=== PATIENT | male | born 1985 | race African-American/Black ===

== ENCOUNTER 2017-06-19 12:06 | Emergency (ER) | payer SELFPAY ==
[~2017-06-19] VITALS: Ht 185.4 cm; Wt 127.0 kg
[2017-06-19] MEDS ORDERED: ONDANSETRON PF 4 MG/2 ML VIAL. IV ONE (12:30)
[2017-06-19] MEDS ORDERED: fentaNYL PF VIAL 100 MCG/2 ML VIAL IV PRN (12:30)
--- NOTE | 2017-06-19 12:44 | ED.ADGEN ---
Past Medical History Past Medical History: No Pertinent History Past Surgical History: Other Additional Past Surgical Histo: pins right 5th finger Alcohol Use: Heavy Drug Use: Marijuana Adult General Chief Complaint Chief Complaint: NAUSEA/VOMITING/DIARRHA HPI HPI Patient is a 31 year old man, no significant past no history, who presents to the emergency department with a complaint of hematemesis. Patient states that he has been drinking heavily for the past 3 days, states he's had "6 or 7 bottles of vodka and Cognac", since Tuesday night. He states his last alcoholic ingestion was around 3:00 in the morning. Patient states that he began to experience upper abdominal pain, and then vomiting, has vomited once, states that he had "a lot of blood", in the emesis, along with some food initially, he describes it as a medium red, states that it was about a cup. Patient states the pain is sharp and stabbing, also cramping, does not radiate, no diarrhea, last bowel was this morning, states he does not believe that there was any blood in the stool but he is not sure. Patient denies any similar to previously , states the last food that he ate was around midnight last night. Denies any injuries, any chest pain or shortness breath, any flank pain, states he is feeling shaky and lightheaded. Denies any drug ingestions, states he does smoke cigarettes daily. Has no history of liver, kidney, or other medical problems, states that he does not drink on a daily basis, usually will drink only on the weekends. Review of Systems Review of Systems Constitutional: Denies fever or chills. [] Eyes: Denies change in visual acuity. [] HENT: Denies nasal congestion or sore throat. [] Respiratory: Denies cough or shortness of breath. [] Cardiovascular: Denies chest pain or edema. [] GI: Cramping upper abdominal pain, nausea, vomiting with blood, no bloody stools or diarrhea. : Denies dysuria. [] Musculoskeletal: Denies back pain or joint pain. [] Integument: Denies rash. [] Neurologic: Denies headache, focal weakness or sensory changes. [] Endocrine: Denies polyuria or polydipsia. [] Lymphatic: Denies swollen glands. [] Psychiatric: Denies depression or anxiety. [] Current Medications Current Medications Current Medications Medications (Trade) Dose Ordered Sig/Josef Start Time Stop Time Status Last Admin Dose Admin Fentanyl Citrate (Fentanyl 2ml Vial) 25 mcg PRN Q15MIN PRN 06/19/17 12:30 06/19/17 17:33 DC 06/19/17 12:45 25 MCG Multivitamins 10 ml/Folic Acid 1 mg/Thiamine HCl 100 mg/Dextrose/ Sodium Chloride 1,011.2 ml @ 1,000 mls/ hr 1X ONCE 06/19/17 13:15 06/19/17 14:15 DC 06/19/17 13:34 1,000 MLS/HR Ondansetron HCl (Zofran) 4 mg 1X ONCE 06/19/17 12:30 06/19/17 12:32 DC 06/19/17 12:45 4 MG Pantoprazole Sodium (Protonix Vial) 80 mg 1X ONCE 06/19/17 12:45 06/19/17 12:46 DC 06/19/17 12:45 80 MG Pantoprazole Sodium 80 mg/ Sodium Chloride 100 ml @ 10 mls/hr Q10H 06/19/17 12:45 06/19/17 17:33 DC 06/19/17 12:51 10 MLS/HR Allergies Allergies Allergies Coded Allergies Type Severity Reaction Last Updated Verified No Known Drug Allergies 09/29/14 No Physical Exam Physical Exam Constitutional: Well developed, well nourished, appears uncomfortable, strong odor of alcohol, non-toxic appearance. [] HENT: Normocephalic, atraumatic, bilateral external ears normal, oropharynx moist, no oral exudates, nose normal. [] Eyes: PERRLA, EOMI, conjunctiva normal, no discharge. [] Neck: Normal range of motion, no tenderness, supple, no stridor. [] Cardiovascular:Heart rate regular rhythm, no murmur, S1, S2, rubs or gallops. [] Lungs & Thorax: Bilateral breath sounds clear to auscultation, no wheezing, rhonchi, rales. No chest or crepitus or tenderness. [] Abdomen: Bowel sounds normal, soft, tenderness to palpation in the epigastric region, negative Brown sign, mild voluntary guarding, no rebound or rigidity, no masses, no pulsatile masses. [] Skin: Warm, dry, no erythema, no rash. [] Back: No tenderness, no CVA tenderness. [] Extremities: No tenderness, no cyanosis, no clubbing, ROM intact, no edema. [] Neurologic: Alert and oriented X 3, normal motor function, normal sensory function, no focal deficits noted. [] Psychologic: Affect normal, judgement normal, mood normal. [] Patient declined rectal exam. Current Patient Data Vital Signs Vital Signs Date Time Temp Pulse Resp B/P (MAP) Pulse Ox O2 Delivery O2 Flow Rate FiO2 06/19/17 17:00 72 18 133/76 (95) 96 06/19/17 12:10 98.2 Room Air 98.2 Lab Values Laboratory Tests Test 06/19/17 12:22 06/19/17 13:36 White Blood Count 8.3 x10^3/uL (4.0-11.0) Red Blood Count 4.99 x10^6/uL (4.30-5.70) Hemoglobin 15.6 g/dL (13.0-17.5) Hematocrit 45.7 % (39.0-53.0) Mean Corpuscular Volume 92 fL (79-100) Mean Corpuscular Hemoglobin 31 pg (25-35) Mean Corpuscular Hemoglobin Concent 34 g/dL (31-37) Red Cell Distribution Width 13.1 % (11.5-14.5) Platelet Count 283 x10^3/uL (140-400) Neutrophils (%) (Auto) 55 % (31-73) Lymphocytes (%) (Auto) 31 % (24-48) Monocytes (%) (Auto) 8 % (0-9) Eosinophils (%) (Auto) 5 % (0-3) H Basophils (%) (Auto) 1 % (0-3) Neutrophils # (Auto) 4.6 x10^3uL (1.8-7.7) Lymphocytes # (Auto) 2.6 x10^3/uL (1.0-4.8) Monocytes # (Auto) 0.6 x10^3/uL (0.0-1.1) Eosinophils # (Auto) 0.4 x10^3/uL (0.0-0.7) Basophils # (Auto) 0.1 x10^3/uL (0.0-0.2) Sodium Level 141 mmol/L (136-145) Potassium Level 3.9 mmol/L (3.5-5.1) Chloride Level 101 mmol/L (98-107) Carbon Dioxide Level 30 mmol/L (21-32) Anion Gap 10 (6-14) Blood Urea Nitrogen 10 mg/dL (8-26) Creatinine 1.2 mg/dL (0.7-1.3) Estimated GFR (Cockcroft-Gault) 84.9 BUN/Creatinine Ratio 8 (6-20) Glucose Level 114 mg/dL (70-99) H Calcium Level 9.0 mg/dL (8.5-10.1) Total Bilirubin 0.6 mg/dL (0.2-1.0) Aspartate Amino Transferase (AST) 59 U/L (15-37) H Alanine Aminotransferase (ALT) 77 U/L (16-63) H Alkaline Phosphatase 87 U/L (46-116) Troponin I Quantitative < 0.017 ng/mL (0.000-0.055) Total Protein 7.6 g/dL (6.4-8.2) Albumin 4.3 g/dL (3.4-5.0) Albumin/Globulin Ratio 1.3 (1.0-1.7) Lipase 110 U/L (73-393) Ethyl Alcohol Level 16 mg/dL (0-10) H Urine Collection Type Unknown Urine Color Yellow Urine Clarity Clear Urine pH 7.0 Urine Specific [place] >=1.030 Urine Protein 100 mg/dL (NEG-TRACE) Urine Glucose (UA) Negative mg/dL (NEG) Urine Ketones (Stick) Negative mg/dL (NEG) Urine Blood Negative (NEG) Urine Nitrite Negative (NEG) Urine Bilirubin Negative (NEG) Urine Urobilinogen Dipstick 0.2 mg/dL (0.2 mg/dL) Urine Leukocyte Esterase Negative (NEG) Urine RBC 0 /HPF (0-2) Urine WBC 1-4 /HPF (0-4) Urine Squamous Epithelial Cells Few /LPF Urine Bacteria 0 /HPF (0-FEW) Urine Hyaline Casts Occasional /HPF Urine Mucus Marked /LPF Urine Sperm Present /HPF Urine Opiates Screen Neg (NEG) Urine Methadone Screen Neg (NEG) Urine Barbiturates Neg (NEG) Urine Phencyclidine Screen Neg (NEG) Urine Amphetamine/Methamphetamine Neg (NEG) Urine Benzodiazepines Screen Neg (NEG) Urine Cocaine Screen Pos (NEG) Urine Cannabinoids Screen Pos (NEG) Urine Ethyl Alcohol Pos (NEG) Laboratory Tests 06/19/17 12:22 Laboratory Tests 06/19/17 12:22 EKG EKG EC: Sinus rhythm, heart rate 81 bpm, upright axis, QTC of 452, AR of 168 , QRS of 80, no ST elevations or depressions, no evidence of acute ST abnormalities. As interpreted by me. Radiology/Procedures Radiology/Procedures Acute abdominal series: 3 view: Normal cardiopulmonary silhouette, no infiltrates, effusions, no free air, stool and bowel gas noted throughout, without obvious evidence of obstruction or other concerning findings. As interpreted by me. [] Course & Med Decision Making Course & Med Decision Making Pertinent Labs and Imaging studies reviewed. (See chart for details) Patient with no further vomiting in the emergency department, received pain medication, antiemetics, IV fluids. He did decline rectal examination, and initially stated that he would sign AGAINST MEDICAL ADVICE, after discussion with myself and nurse Pereira at bedside, patient was agreeable to stay for evaluation. Laboratory studies not reveal any concerning findings, imaging was unremarkable. Patient was observed in the ED for length of time, awaiting results, which were delayed due to computer difficulties. Patient with no further emesis 5 hours into his ED evaluation, states he is feeling much better , is rated go home. Discussed alcoholic gastritis with patient, dietary recommendations, importance of avoiding alcohol use, especially in the form of binge drinking, due to significant harm that can be caused, also discussed the risks and potential health hazards of cocaine abuse. Patient encouraged to establish care with a primary care provider for follow-up, to return to the ED for concerning symptoms as discussed. Patient voiced understanding and agreement, discharged home in stable condition, asymptomatic, with precautions, and plan as above. Dragon Disclaimer Dragon Disclaimer This electronic medical record was generated, in whole or in part, using a voice recognition dictation system. Departure Impression: Primary Impression: Alcoholic gastritis Disposition: 01 HOME, SELF-CARE Condition: IMPROVED RAFAEL TREVINO DO Jun 19, 2017 12:44
[2017-06-19 12:45] LABS: BASO # 0.1 x10^3/uL (0.0-0.2); BASO % 1 % (0-3); EOS % 5 % (0-3); HEMATOCRIT 45.7 % (39.0-53.0); HEMOGLOBIN 15.6 g/dL (13.0-17.5); LYMPH # 2.6 x10^3/uL (1.0-4.8); LYMPH % 31 % (24-48); MEAN CORPUSCULAR HEMOGLOBIN 31 pg (25-35); MEAN CORPUSCULAR HGB CONC 34 g/dL (31-37); MEAN CORPUSCULAR VOLUME 92 fL (79-100); MONO % 8 % (0-9); NEUT % 55 % (31-73); PLATELET COUNT 283 x10^3/uL (140-400); RED BLOOD COUNT 4.99 x10^6/uL (4.30-5.70); RED CELL DISTRIBUTION WIDTH 13.1 % (11.5-14.5); WHITE BLOOD COUNT 8.3 x10^3/uL (4.0-11.0)
[2017-06-19] MEDS ORDERED: PANTOPRAZOLE SODIUM IV 80 MG in IV NORMAL SALINE 100ML 100 ML IV SCH (12:45)
[2017-06-19] MEDS ORDERED: PANTOPRAZOLE IV PUSH 40 MG VIAL. IVP ONE (12:45)
[2017-06-19 12:54] LABS: CREATININE 1.2 mg/dL (0.7-1.3); GFR 84.9; POTASSIUM 3.9 mmol/L (3.5-5.1)
[2017-06-19 12:59] LABS: ALBUMIN 4.3 g/dL (3.4-5.0); ALBUMIN/GLOBULIN RATIO 1.3 (1.0-1.7); TOTAL BILIRUBIN 0.6 mg/dL (0.2-1.0); TOTAL PROTEIN 7.6 g/dL (6.4-8.2)
[2017-06-19] MEDS ORDERED: MULTIVIT INFUSN,ADULT 4,VIT K 10 ML, FOLIC ACID 1 MG, THIAMINE 100 MG in IV DEXTROSE 5 ... IV ONE (13:15)
[2017-06-19 13:45] LABS: BILIRUBIN,URINE NEGATIVE (NEG); GLUCOSE,URINE NEGATIVE (NEG); NITRITE,URINE NEGATIVE (NEG); PROTEIN,URINE 100 mg/dL (NEG-TRACE); UROBILINOGEN,URINE 0.2 mg/dL (0.2 mg/dL)
[2017-06-19 13:50] LABS: BARBITURATES NEG (NEG); BENZODIAZEPINES NEG (NEG); CANNABINOIDS POS (NEG); COCAINE POS (NEG); METHADONE NEG (NEG); OPIATES NEG (NEG); PHENCYCLIDINE NEG (NEG)
[2017-06-19 14:02] LABS: BACTERIA,URINE 0 /HPF (0-FEW); RBC,URINE 0 /HPF (0-2); SPERM,URINE PRESENT /HPF; SQUAMOUS EPITHELIAL CELL,UR FEW /LPF
--- NOTE | 2017-06-19 14:56 | EKG ---
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
[2017-06-19 17:00] VITALS: BP 133/76
[2017-06-19 18:12] LABS: MAGNESIUM 2.1 mg/dL (1.8-2.4); PHOSPHORUS 3.1 mg/dL (2.6-4.7)
--- NOTE | 2017-06-19 18:26 | RAD ---
Acute abdominal series to include a PA chest radiograph 06/19/2017 Clinical History: Nausea and vomiting with diarrhea and left-sided abdominal pain. A PA digital radiograph of the chest was obtained. 2 AP supine and an erect AP digital radiographs of the abdomen/pelvis were obtained. No previous studies are available for comparison. The cardiac and mediastinal silhouettes are within normal limits in size and configuration. No pulmonary infiltrate is seen. No pleural effusion or pneumothorax is noted. The abdominal bowel gas pattern is nonobstructive. There is no evidence of free air. No radiopaque calculus is seen. Mild S-shaped curvature of the thoracolumbar spine is seen. Impression: Nonobstructive bowel gas pattern.
== END 2017-06-19 17:33 | disposition home or self-care (01) ==
LOC: ER 12:06
DX: K29.20 Alcoholic gastritis without bleeding (principal); F10.10 Alcohol abuse, uncomplicated; Y90.0 Blood alcohol level of less than 20 mg/100 ml
CPT/HCPCS: 36415; 74022; 80053; 80307; 81001; 83690; 83735; 84100; 84484; 85025; 86850; 86870; 86900; 86901; 93005; 96365; 96366; 96368; 96375; 96376; 99285; C9113; G0480; J2405; J3010; G0479

== ENCOUNTER 2019-09-16 19:32 | Emergency (ER) | payer SELFPAY ==
[~2019-09-16] VITALS: Ht 185.4 cm; Wt 113.9 kg
[2019-09-16] MEDS ORDERED: ORPHENADRINE CITRATE 60 MG/2 ML VIAL. IM ONE (20:45)
[2019-09-16] MEDS ORDERED: KETOROLAC 60 MG/2 ML VIAL. IM ONE (20:45)
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
[2019-09-16] MEDS ORDERED: NAPR-514 PO (21:56)
[2019-09-16] MEDS ORDERED: CYCL10TA2 PO (21:56)
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
[2019-09-16 22:07] VITALS: BP 124/68
== END 2019-09-16 22:07 | disposition home or self-care (01) ==
LOC: ER 19:32
DX: S16.1XXA Strain of muscle, fascia and tendon at neck level, initial encounter (principal); M25.562 Pain in left knee; F12.90 Cannabis use, unspecified, uncomplicated; V59.59XA Passenger in pick-up truck or van injured in collision with other motor vehicles in traffic accident, initial encounter; Z72.89 Other problems related to lifestyle; Y93.89 Activity, other specified; Y92.488 Other paved roadways as the place of occurrence of the external cause; Y99.8 Other external cause status
CPT/HCPCS: 73562; 96372; 99284; J1885; J2360